=== PATIENT | female | born 1945 | race Caucasian/White ===

== ENCOUNTER → 2017-05-15 | Outpatient (CLI) | payer OTHER ==
[~2017-05-15] MED LIST: AMLODIPINE BESYL5 M1 PO; ASPIRIN EC325 M1 PO; ASPIRIN81 M2 PO; ATENOLOL 25 MG25 M1 PO; ATENOLOL 50 MG50 M1 PO; ATENOLOL 50MG T50 M1 PO; ATORVASTATIN CA40 MG PO; BAYER CHEWABLE81 MG PO; CLOPIDOGREL75 MG PO; COZAAR 25 MG TA25 M2 PO; ETODOLAC 300 M300 MG PO; HYDROCODON-ACE1 EAC8 PO; IMDUR 30 MG TAB30 M1 PO; LEVAQUIN 500 M500 M2 PO; LEVOTHYROXIN0.125 M1 PO; MIRALAX17 G1 PO; NAPROSYN500 MG PO; NITROGLYCERIN0.4 MG SL; PREDNISOLONE 5 M5 M1 PO; SPIRIVA INH; TRIAMTERENE/HCT1 CA1 PO; VENTOLIN HFA 1818 GM INH; ZPAK PO
== END ==
LOC: M.RAD 11:42
DX: M25.511 Pain in right shoulder (principal); M25.512 Pain in left shoulder

== ENCOUNTER 2017-06-07 10:23 | Inpatient (IN) | payer OTHER ==
[~2017-06-07] VITALS: Ht 160 cm; Wt 79.8 kg
[~2017-06-07 10:23] MED LIST changes: -LEVAQUIN 500 M500 M2 PO
[2017-06-07 10:35] VITALS: BP 179/56
[2017-06-07 11:06] LABS: ABSOLUTE EOSINOPHILS 0.1 thou/uL (0.0-0.7); ABSOLUTE LYMPHOCYTES 1.5 thou/uL (0.8-5.3); ABSOLUTE MONOCYTES 0.5 thou/uL (0.0-1.2); ABSOLUTE NEUTROPHILS 6.6 thou/uL (1.6-8.1); BASOPHILS 0.4 %; EOSINOPHILS 1.6 %; HEMATOCRIT 40.2 % (37.0-47.0); HEMOGLOBIN 13.7 gm/dL (12.0-15.0); LYMPHOCYTES 17.2 %; MCV 94.1 fL (80.0-100.0); MONOCYTES 6.2 %; MPV 10.1 fl. (7.2-11.1); NUCLEATED RBCS 0 /100WBC; PLATELET COUNT* 208 thou/uL (150-400); POLYS 74.6 %; RBC 4.28 mil/uL (4.20-5.00); RDW-CV 14.4 % (10.5-14.5); WBC 8.8 thou/uL (4.0-11.0)
[2017-06-07 11:09] LABS: URINE BILIRUBIN NEGATIVE (Negative); URINE BLOOD NEGATIVE (Negative); URINE CLARITY CLEAR; URINE COLOR YELLOW; URINE GLUCOSE-RANDOM NEGATIVE (Negative); URINE KETONES NEGATIVE (Negative); URINE LEUKOCYTES-REFLEX 1+ (Negative); URINE NITRITE-REFLEX NEGATIVE (Negative); URINE PROTEIN NEGATIVE (Negative); URINE SPECIFIC GRAVITY 1.015 (1.005-1.030); URINE UROBILINOGEN 0.2 E.U./dl (0.2-1.0)
[2017-06-07 11:17] LABS: APTT 23.6 Seconds (25.0-31.3); INR 1.1; PROTIME 10.8 Seconds (9.20-11.50)
[2017-06-07 11:17] LABS: BACTERIA-REFLEX None Seen /HPF (None Seen); CASTS None Seen /LPF (None Seen); CRYSTALS None Seen /LPF (None Seen); MUCUS None Seen strn/LPF (None Seen); SQUAMOUS >10 Many /LPF (0-3); URINE RBC 3-10 Few /HPF (0-2); URINE WBC-REFLEX 0-5 Rare /HPF (0-5)
[2017-06-07 11:19] LABS: ANION GAP 10 mmol/L (7-16); BUN 17 mg/dL (7-18); CALCIUM 9.2 mg/dL (8.5-10.1); CHLORIDE 103 mmol/L (98-107); CO2 28 mmol/L (21-32); GLUCOSE 124 mg/dL (70-99); POTASSIUM 3.7 mmol/L (3.5-5.1); SODIUM 141 mmol/L (136-145)
[2017-06-07 11:26] LABS: ALBUMIN 3.5 g/dL (3.4-5.0); ALKALINE PHOSPHATASE 90 U/L (46-116); NT-PRO BRAIN NAT PEPTIDE 205 pg/mL (<300); SGOT 15 U/L (15-37); SGPT 20 U/L (30-65); TOTAL BILIRUBIN 0.4 mg/dL (<0.1-1.0); TROPONIN-I LEVEL <0.06 ng/mL (<0.06)
[2017-06-07 13:15] VITALS: BP 101/52
[2017-06-07 13:23] VITALS: BP 92/58
--- NOTE | 2017-06-07 13:26 | NUR ---
PATIENTS C/O SPOT ON LEFT UPPER ARM CONCERNED IT IS AN INFECTION. THIS RN DID NOT SEE ANYTHING RESEMBLING AN INFECTION BUT DID PASS ON TO JALIL NELSON WHOM IS TAKING PATIENT NOW
--- NOTE | 2017-06-07 14:57 | EKG ---
[place] [address] ELECTROCARDIOGRAM REPORT Name: PALAK OVERTON Room: [place] [address] ADM IN [facility].#: [id number] Admission: 06/07/17 Attend Phys: Elroy Ruff Discharge: Date of : 41 Report #: [id number] THIS REPORT FOR: //name// [facility] ED Test Date: 2017-06-07 Test Time: 10:39:37 Pat Name: PALAK OVEROTN Department: Room: [facility] Gender: F Dock Clerk: Amber MUÑIZ : 1945 Requested By: Dominick Alonso Order Number: [id number] MD: Rhys Lara Measurements Intervals [place] Rate: 57 P: 4 NE: 215 QRS: -17 QRSD: 92 T: 61 QT: 432 QTc: 421 Interpretive Statements Sinus bradycardia Borderline prolonged NE interval Borderline left axis deviation Low voltage, precordial leads Abnormal R-wave progression, early transition Compared to ECG 01/20/2015 15:11:21 Low QRS voltage now present Electronically Signed On 06-07-2017 14:57:12 [employer]GER [employer] by Rhys Lara [email or web address] <ELECTRONICALLY SIGNED> By: Rhys Lara MD, [facility] 06/07/17 1457 [id number] Rhys Lara MD, [facility] /EPI
[2017-06-07 16:18] VITALS: BP 127/64
[2017-06-07 20:15] VITALS: BP 125/53
[2017-06-08] VITALS (7 sets, daily range): BP systolic 84–125; BP diastolic 41–66
--- NOTE | 2017-06-08 06:55 | NUR ---
Pt reports she is dizzy at times with movement and when turning her head certain ways. Pt's dtr stayed in pt's room overnight. IVF started last night per physician order. Up to BR with SBA. VSS. Will continue to monitor.
--- NOTE | 2017-06-08 07:25 | NUR ---
CHANGE OF SHIFT, BEDSIDE REPORT GIVEN ASSUMED PATIENT CARE PATIENT SEEN AT BEDSIDE, IN BED ASLEEP
--- NOTE | 2017-06-08 15:42 | NUR ---
CM ASSESSMENT: Pt is A&O. Resides at home with her . Independent with ADLs. No DME. No hx of HH or SNF. Pt has a walker and cane at home that she can use if needed. Following for dc needs.
--- NOTE | 2017-06-08 17:13 | 2DMMODE ---
[place] [address] 2 D/M-MODE ECHOCARDIOGRAM Name: PALAK OVERTON Room: [facility] ADM IN [facility]#: [id number] Admission: 06/07/17 Attend Phys: Tyrell Gibson Discharge: Date of : 41 Date of Service: 06/08/17 1713 Report #: [id number] THIS REPORT FOR: //name// APPROVED REPORT Study performed: 06/08/2017 15:18:19 EXAM: Comprehensive 2D, Doppler, and color-flow Echocardiogram Patient Location: In-Patient Room #: [facility] Status: routine BSA: 1.80 HR: 58 bpm BP: 125/41 mmHg Rhythm: NSR Other Information Study Quality: Good Indications AMS, Dizziness 2D Dimensions LVEF(%): 69.38 (>50%) IVSd: 13.79 (7-11mm) LVOT Diam: 18.91 (18-24mm) LVDd: 40.76 mm PWd: 11.80 (7-11mm) Ascending Ao: 28.06 (22-36mm) LVDs: 25.04 (25-40mm) Aortic Root: 28.70 mm José's LVEF: 69.38 % Volumes Left Atrial Volume (Systole) LA ESV Index: 19.40 mL/m2 Aortic Valve AoV Peak Catalino.: 1.54 m/s AO Peak Gr.: 9.49 mmHg LVOT Max P.08 mmHg AO Mean Gr.: 5.12 mmHg LVOT Mean P.39 mmHg LVOT Max V: 1.13 m/s AO V2 VTI: 36.20 cm LVOT Mean V: 0.71 m/s ALYSSA (VTI): 2.31 cm2 LVOT V1 VTI: 29.72 cm Mitral Valve E/A Ratio: 0.98 [place] [address] 2 D/M-MODE ECHOCARDIOGRAM Name: PALAK OVERTON Room: [address] [place] .R.#: [id number] Admission: 06/07/17 Attend Phys: Tyrell Gibson Discharge: Date of : 41 Date of Service: 06/08/17 1713 Report #: [id number] MV Decel. Time: 229.99 ms MV E Max Catalino.: 1.06 m/s MV PHT: 66.70 ms MVA (PHT): 3.30 cm2 TDI E/Lateral E': 10.60 E/Medial E': 9.64 Medial E' Catalino.: 0.11 m/s Lateral E' Catalino.: 0.10 m/s Pulmonary Valve PV Peak Catalino.: 0.93 m/s PV Peak Gr.: 3.47 mmHg Tricuspid Valve TR Peak Gr.: 20.90 mmHg RVSP: 25.00 mmHg Left Ventricle The left ventricle is normal size. There is normal LV segmental wall motion. There is normal left ventricular wall thickness. Left ventricular systolic function is normal. The left ventricular ejection fraction is within the normal range. LVEF is 60-65%. Transmitral Doppler flow pattern suggests impaired LV relaxation. Right Ventricle The right ventricle is normal size. The right ventricular systolic function is normal. Atria The left atrium size is normal. The right atrium size is normal. Aortic Valve The aortic valve is normal in structure. No aortic regurgitation is present. There is no aortic valvular stenosis. Mitral Valve The mitral valve is normal in structure. Mild mitral regurgitation. No evidence of mitral valve stenosis. Tricuspid Valve The tricuspid valve is normal in structure. Mild tricuspid regurgitation. The RVSP is ___25____ mmHg. Pulmonic Valve The pulmonary valve is normal in structure. [place] [address] 2 D/M-MODE ECHOCARDIOGRAM Name: PALAK OVERTON Room: [address] IN [facility].#: [id number] Admission: 06/07/17 Attend Phys: Tyrell Gibson Discharge: Date of : 41 Date of Service: 06/08/17 1713 Report #: [id number] valvular regurgitation. Great Vessels The aortic root is normal in size. IVC is normal in size and collapses with >50% inspiration Pericardium There is no pericardial effusion. <Conclusion> LVEF is 60-65%. There is normal LV segmental wall motion. There is no aortic valvular stenosis. No aortic regurgitation is present. Mild mitral regurgitation. Transmitral Doppler flow pattern suggests impaired LV relaxation. <ELECTRONICALLY SIGNED> By: Deniz Lord MD, FACC 06/08/17 171 12 12 Deniz Lord MD, FACC /INF
--- NOTE | 2017-06-08 19:44 | NUR ---
PATIENT REMAINS A AND O X 4, [place] SR/1ST DEGR AT TIMES LUNGS DIM/CTA/RA O2 SATS HIGH 90S GOOD APPETITE LAST BM T-2 GOOD UO YELLOW URINE APPROXIMATELY 350CC+ UP WITH 1 ASSIST TO BATHROOM IV L AC 20 GA IVF NS AT 100CC/HR NO C/O PAIN NO C/O DIZZINESS TODAY ORTHOSTATICS CHARTED POSITVE WITH LOWER B/P AND P WITH ACTIVITY CTA COMPLETED US CAROTIDS NOT COMPLETED YET SPEECH EVAL COMPLETE PT/OT ORDERED NOT SEEN NEURO CONS CALLED NOT SEEN CALL LIGHT IN REACH AND INSTRUCTION GIVEN AND FOLLOWED REF SCDS IVF NS AT 100C/HR
[2017-06-09] VITALS: BP 102/55
[2017-06-09 04:00] VITALS: BP 100/49; BP 103/56; BP 113/49
--- NOTE | 2017-06-09 04:41 | NUR ---
PT ALERT ORIENTED. DTR STAYING IN RM WITH PT. TELEMETRY SHOWS SB. PT LIME. WEARS AID IN R EAR. ORTHO BP DONE LYING 113/49, SITTING 103/56, STANDING 100/49. WILL CONTINUE TO MONITOR.
[2017-06-09 06:21] LABS: CHOLESTEROL 105 mg/dL (<200); HDL CHOLESTEROL 35 mg/dL (>40); LDL CHOLESTEROL 52 mg/dL (<100); TRIGLYCERIDE 94 mg/dL (<150); VLDL 19 mg/dL (<40)
[2017-06-09 06:25] LABS: SERUM ASSESSMENT Clear
[2017-06-09 08:50] VITALS: BP 117/47
[2017-06-09 10:08] VITALS: BP 117/47
[2017-06-09 12:23] VITALS: BP 136/59
[2017-06-09] MEDS ORDERED: LEVAQUIN 500 M500 M2 PO (15:42)
[2017-06-09 16:02] VITALS: BP 104/56
--- NOTE | 2017-06-09 16:20 | NUR ---
PATIENT DISCHARGED TO HOME. DISCHARGE PAPERS REVIEWED AND SIGNED. PRESCRIPTION AND INFORMATION SHEETS GIVEN. IV REMOVED. PATIENT DENIES ANY FURTHER NEEDS. INFORMATION FOR OUTPATIENT MRI FAXED TO SCHEDULING. PATIENT TAKEN BY WHEELCHAIR TO EXIT. LEFT WITH .
== END 2017-06-09 16:20 | disposition home or self-care (01) | DRG 641 ==
LOC: M.ERS 10:23 → M.2W 11:42 → M.TBA-ER 11:42 → M.2W 13:16
PROVIDERS: Family Medicine; ADMIT Internal Medicine
DX: E86.0 Dehydration (principal); N39.0 Urinary tract infection, site not specified; I10 Essential (primary) hypertension; E03.9 Hypothyroidism, unspecified; M19.90 Unspecified osteoarthritis, unspecified site; F17.210 Nicotine dependence, cigarettes, uncomplicated; E78.5 Hyperlipidemia, unspecified; I65.21 Occlusion and stenosis of right carotid artery; Z28.21 Immunization not carried out because of patient refusal; Z90.49 Acquired absence of other specified parts of digestive tract; I25.2 Old myocardial infarction; Z79.899 Other long term (current) drug therapy

== ENCOUNTER → 2017-06-21 | Outpatient (CLI) | payer OTHER ==
[~2017-06-21] MED LIST changes: +LEVAQUIN 500 M500 M2 PO
== END ==
LOC: M.ULTRA 10:07 → M.MRI 11:30
DX: G45.8 Other transient cerebral ischemic attacks and related syndromes (principal); I70.298 Other atherosclerosis of native arteries of extremities, other extremity